=== PATIENT | female | born 1955 | race Caucasian/White ===

== ENCOUNTER 2019-07-10 15:45 | Emergency (ER) | payer OTHER, SELFPAY ==
[2019-07-10 16:00] VITALS: BP 138/86; PULSE 92; RESP 16; TEMP 36.8; O2SAT 98
--- NOTE | 2019-07-10 16:00 | ED.LOWEXIN ---
HPI - Extremity Injury (Lower) General Chief Complaint: Extremity Injury, Lower Stated Complaint: Left foot Pain Time Seen by Provider: 07/10/19 16:00 Source: patient and RN notes reviewed History of Present Illness HPI Narrative: Patient is a 64-year-old female presents the urgent care with complaints of left posterior ankle abrasion. Patient states that she slipped down a couple of wooden stairs scraping the back of her ankle/heel on the ground. Patient states that happened approximately 1 hour ago and has not taken anything for her pain. Patient ambulated into the facility without any difficulty. Denies any loss of consciousness or hitting her head. No other acute complaints. No acute distress noted. Patient read the plan of care. Related Data Home Medications Medication Instructions Recorded Confirmed cyclosporine [Restasis] 1 drp DAILY 07/10/19 07/10/19 mirtazapine 15 mg DAILY 07/10/19 07/10/19 oxybutynin chloride 10 mg PO DAILY 07/10/19 07/10/19 pantoprazole 40 mg PO DAILY 07/10/19 07/10/19 rosuvastatin 5 mg DAILY 07/10/19 07/10/19 Allergies Allergy/AdvReac Type Severity Reaction Status Date / Time codeine Allergy Unknown Verified 06/14/17 10:52 Review of Systems Review of Systems: Narrative: CONSTITUTIONAL: Denies fever, chills, or sweats. EYES: Denies visual changes, redness, or discharge. ENT: Denies rhinorrhea, congestion, sore throat, or otalgia. CARDIOVASCULAR: Denies chest pain, palpitations, or edema. RESPIRATORY: Denies cough or dyspnea. GASTROINTESTINAL: Denies abdominal pain, nausea, vomiting, or diarrhea. GENITOURINARY: Denies dysuria or hematuria. SKIN: Reports of a abrasion to the posterior ankle/heel MUSCULOSKELETAL: Denies back pain, joint pain, or myalgia. NEUROLOGIC: Denies headache, numbness, or weakness. [facility] Family History Family History (Updated 06/14/17 @ 10:56 by DOCTOR UNKNOWN) Mother Family history of malignant neoplasm Family history of thyroid disease Hypertension Family history of arthritis Father Patient's father is Social History Social History Smoking status: Never smoker Alcohol intake: never Gender identity (if verbalized by the patient): Female Comments At the time of my signature, I reviewed and agree with the nursing past medical, surgical, social, and family history. There is no relevant family history pertinent to the patient complaint. Exam Narrative: Exam Narrative: GENERAL: This is a well-nourished, well-developed patient, in no apparent distress. HEAD: normocephalic, atraumatic. EYES: PERRL. Sclera clear/white. Vision is grossly intact. EARS: External ears normal NOSE: External nose normal with no obvious nasal discharge THROAT: Mucous membranes moist NECK: Neck supple CARDIOVASCULAR: Regular rate and rhythm without murmurs, gallops, or rubs. RESPIRATORY: Clear to auscultation. Breath sounds equal bilaterally. No wheezes, rales, or rhonchi. SKIN: 0.5 cm diameter nonbleeding abrasion noted to the posterior heel/ankle. Warm, intact with no suspicious lesions or rash, good texture and turgor. NEURO: awake, alert, and oriented to person, place and time. There were no obvious focal neurologic abnormalities. EXTREMITIES: No obvious deformity or fracture to the left foot/malleolus. No erythema, edema, ecchymosis. Range of motion within normal limits. No obvious tendon rupture. Positive strong left pedal pulse with capillary refill less than 2 seconds. Course Vital Signs Vital signs: Vital Signs Temperature 98.2 F 07/10/19 16:00 Pulse Rate 92 07/10/19 16:00 Respiratory Rate 16 07/10/19 16:00 Blood Pressure 138/86 07/10/19 16:00 Pulse Oximetry 98 07/10/19 16:00 Temperature 98.2 F 07/10/19 16:00 Pulse Rate 92 07/10/19 16:00 Respiratory Rate 16 07/10/19 16:00 Blood Pressure 138/86 07/10/19 16:00 Pulse Oximetry 98 07/10/19 16:00 Reviewed MDM - Extremity Injury (Lower)
== END 2019-07-10 16:18 | disposition home or self-care (01) ==
PROVIDERS: Emergency Provider Nurse Practitioner Family; PCP Internal Medicine
DX: S90.512A Abrasion, left ankle, initial encounter (principal); W10.9XXA Fall (on) (from) unspecified stairs and steps, initial encounter; E78.00 Pure hypercholesterolemia, unspecified; K21.9 Gastro-esophageal reflux disease without esophagitis; M19.90 Unspecified osteoarthritis, unspecified site
CPT/HCPCS: 99212; G0463

== ENCOUNTER 2019-11-18 08:49 | Outpatient (CLI) | payer OTHER, SELFPAY ==
[2019-11-18 09:29] LABS: Blood Urea Nitrogen 20 mg/dL (7-17); Calcium 9.4 mg/dL (8.4-10.2); Carbon Dioxide 31 mmol/L (22-30); Chloride 105 mmol/L (98-107); Estimated Glomerular Filt Rate 55; Glucose 99 mg/dL (65-105); Potassium 4.5 mmol/L (3.4-5.0); Sodium 140 mmol/L (137-145)
== END 2019-11-18 08:50 | disposition home or self-care (01) ==
PROVIDERS: PCP Internal Medicine; Visit Provider Internal Medicine
DX: I10 Essential (primary) hypertension (principal)
CPT/HCPCS: 36415; 80048

== ENCOUNTER 2019-11-20 08:47 | Outpatient (CLI) | payer OTHER, SELFPAY ==
--- NOTE | ~2019-11-20 | DEXA_ITS ---
Bone Density Report Name: Greer Griffin Age: 64 Sex: Female Ethnicity: White Date of : 1955 Indication: osteopenia; Referring Provider: LEXUS HERNANDEZ Study: Bone densitometry was performed. Exam Date: November 20, 2019 Accession number: [id number] Bone Density: Region BMD T-score Z-score Classification AP Spine (L1-L4) 0.808 -2.2 -0.3 Osteopenia Femoral Neck (Left) 0.625 -2.0 -0.4 Osteopenia Total Hip (Left) 0.764 -1.5 -0.2 Osteopenia Total Hip Bilateral Avg 0.788 -1.3 0.0 Osteopenia Femoral Neck (Right) 0.657 -1.7 -0.1 Osteopenia Total Hip (Right) 0.810 -1.1 0.2 Osteopenia World Health Organization criteria for BMD impression classify patients as: Normal (T-score at or above -1.0), Osteopenia (T-score between -1.0 and -2.5), or Osteoporosis (T-score at or below -2.5). 10-year Fracture Risk(1): Major Osteoporotic Fracture 11% Hip Fracture 1.6% Reported Risk Factors: [place] (), Neck BMD=0.625, BMI=27.0 (1) FRAX(R) Version 3.08. Fracture probability calculated for an untreated patient. Fracture probability may be lower if the patient has received treatment. Previous Exams: Region Exam Age BMD T-score BMD Change BMD Change Date g/cm2 vs Baseline vs Previous AP Spine(L1-L4) 11/20/2019 64 0.808 -2.2 -0.020(-2.4%)# -0.023(-2.7%) 05/22/2017 61 0.831 -2.0 0.003(0.3%)# -0.014(-1.6%) 05/18/2015 59 0.845 -1.8 0.017(2.0%)# 0.001(0.1%)# 10/19/2012 57 0.844 -1.8 0.015(1.9%)# 0.042(5.2%)* 12/08/2011 56 0.802 -2.2 -0.027(-3.2%)# -0.021(-2.6%)# 08/12/2010 55 0.823 -2.0 -0.005(-0.6%) -0.005(-0.6%) 11/15/2007 52 0.828 -2.0 Total Hip(Left) 11/20/2019 64 0.764 -1.5 -0.041(-5.1%)# -0.057(-6.9%)* 05/22/2017 61 0.821 -1.0 0.016(2.0%)# 0.023(2.9%) 05/18/2015 59 0.798 -1.2 -0.007(-0.9%)# -0.027(-3.2%)# 10/19/2012 57 0.825 -1.0 0.019(2.4%)# 0.018(2.2%) 12/08/2011 56 0.807 -1.1 0.002(0.2%)# 0.015(1.8%)# 08/12/2010 55 0.792 -1.2 -0.013(-1.6%) -0.013(-1.6%) 11/15/2007 52 0.805 -1.1 Total Hip(Right) 11/20/2019 64 0.810 -1.1 -0.012(-1.5%)# -0.064(-7.3%)* 05/22/2017 61 0.875 -0.6 0.052(6.3%)# 0.089(11.4%)* 05/18/2015 59 0.785 -1.3 -0.037(-4.5%)# -0.015(-1.9%)# 10/19/2012 57 0.801 -1.2 -0.022(-2.7%)# 0.005(0.6%) 12/08/2011 56 0.796 -1.2 -0.027(-3.2%)# -0.048(-5.7%)# 08/12/2010 55 0.844 -0.8 0.022(2.6%) 0.022(2.6%) 11/15/2007 52 0.823 -1.0 *Denotes significance at 95% confidence level, LSC for AP Spin
== END 2019-11-20 08:48 | disposition home or self-care (01) ==
LOC: ANHIMG 08:48
PROVIDERS: PCP Internal Medicine; Visit Provider Internal Medicine
DX: M85.89 Other specified disorders of bone density and structure, multiple sites (principal)
CPT/HCPCS: 77080

== ENCOUNTER 2020-05-13 08:54 | Outpatient (CLI) | payer OTHER, SELFPAY ==
--- NOTE | ~2020-05-13 | MM_ITS ---
EXAMINATION: MM screening [facility] BI w deisy HISTORY: Screening mammogram TECHNIQUE: Craniocaudal and mediolateral oblique 3-D tomosynthesis images were obtained and synthetic 2-D images were generated. CAD analysis was submitted and interpreted. COMPARISON: 04/08/2019, 02/22/2018, 02/03 2017 bilateral digital screening mammogram examinations BREAST PARENCHYMAL COMPOSITION: There are scattered areas of fibroglandular density. FINDINGS: Possible new asymmetric approximately 7 mm opacity in the anterior aspect of the mid to upp er outer left breast (MLO Tomosynthesis image 23/71). Diagnostic left mammogram is recommended, with ultrasound if required. Otherwise there is no evidence of suspicious mass, calcification, or architectural distortion to sugg est malignancy in either breast. There has been no other suspicious interval change. IMPRESSION: 1. Possible new asymmetric 7 mm opacity in left breast (MLO Tomosynthesis image 23/71) 2. Diagnostic left mammogram is recommended, with ultrasound if required. BI-RADS Category 0: Incomplete: Needs additional imaging evaluation. Reviewed, dictated and finalized at location A. EMIC SUPPORT ASSISTANT
== END 2020-05-13 08:55 | disposition home or self-care (01) ==
LOC: ANHIMG 08:56
PROVIDERS: PCP Internal Medicine; Visit Provider Internal Medicine
DX: Z12.31 Encounter for screening mammogram for malignant neoplasm of breast (principal); R92.8 Other abnormal and inconclusive findings on diagnostic imaging of breast
CPT/HCPCS: 77063; 77067

== ENCOUNTER 2020-06-09 13:33 | Outpatient (CLI) | payer OTHER, SELFPAY ==
--- NOTE | ~2020-06-09 | MMUS_ITS ---
EXAMINATION: MM diagnostic mammo unilat LT, US breast LT limited HISTORY: Follow-up left breast asymmetry TECHNIQUE: Additional 3-D tomosynthesis images of the left breast were performed and synthetic 2-D im ages were generated. CAD analysis was submitted and interpreted. High resolution Limited left breast ultrasound was performed. COMPARISON: Comparison to multiple prior studies sequentially, with oldest reviewed study dated 12/03. BREAST PARENCHYMAL COMPOSITION: Breast composed of scattered areas of fibroglandular density FINDINGS: MAMMOGRAPHIC FINDINGS: There are no suspicious masses, calcifications or architectural distortion in the left breast to sugg est malignancy. Focal asymmetries are less apparent with spot compression views, most likely superimp osed fibroglandular tissue. ULTRASOUND: Limited left breast ultrasound: There is hyperechoic soft tissue at the 3:00 position, likely represe nting interface artifact rather than a discrete mass. This is not definitely seen on the pedicular or ientation. In the subareolar location there is a hypoechoic area, likely confluence of ducts rather t perry a mass. IMPRESSION: 1. Probable benign findings of the left breast. 2. Recommend 6 month follow-up diagnostic left mammogram and ultrasound recommended. BI-RADS category 3, probably benign findings. Reviewed, dictated and finalized at location A. ERER IMPRESSION: 1. Probable benign findings of the left breast. 2. Recommend 6 month follow-up diagnostic left mammogram and ultrasound recomme nded. BI-RADS category 3, probably benign findings.
== END 2020-06-09 13:34 | disposition home or self-care (01) ==
PROVIDERS: PCP Internal Medicine; Visit Provider Internal Medicine
DX: R92.8 Other abnormal and inconclusive findings on diagnostic imaging of breast (principal)
CPT/HCPCS: 76642; 77065

== ENCOUNTER → 2020-10-07 10:14 | Outpatient (CLI) | payer OTHER, SELFPAY ==
--- NOTE | ~2020-10-07 | XR_ITS ---
EXAMINATION: XR wrist LT min 3V DATE: 10/07/2020 10:32 INDICATION: Pain at left first carpometacarpal joint. TECHNIQUE: 4 views of left wrist were obtained. COMPARISON: None. FINDINGS: Bone alignment is normal. No fracture. There is mild osteoarthritis of first carpometacarpa l joint. IMPRESSION: 1. Mild osteoarthritis of first carpometacarpal joint. Reviewed, dictated and finalized at location A.
== END ==
PROVIDERS: PCP Internal Medicine; Visit Provider Plastic Surgery
DX: M19.042 Primary osteoarthritis, left hand (principal)
CPT/HCPCS: 73110

== ENCOUNTER 2020-12-10 10:52 | Outpatient (CLI) | payer OTHER, SELFPAY ==
--- NOTE | ~2020-12-10 | MMUS_ITS ---
EXAMINATION: MM diagnostic [facility] LT w deisy, US breast LT limited HISTORY: Follow-up left breast asymmetry TECHNIQUE: Additional 3-D tomosynthesis images of the left breast were performed and synthetic 2-D im ages were generated. CAD analysis was submitted and interpreted. High resolution left breast ultrasou nd was performed. COMPARISON: Comparison to multiple prior studies sequentially, with oldest reviewed study dated 02/04/2016. BREAST PARENCHYMAL COMPOSITION: Breast composed of scattered areas of fibroglandular density. FINDINGS: MAMMOGRAPHIC FINDINGS: There are no suspicious masses, calcifications or architectural distortion in the left breast to sugg est malignancy. ULTRASOUND: Limited left breast ultrasound: Normal heterogeneous echotexture without focal solid or cystic mass. IMPRESSION: 1. No evidence for malignancy in the left breast. 2. Routine yearly screening mammogram and regular clinical breast examination are recommended. BI-RADS Category 1: Negative Reviewed, dictated and finalized at location A. IMPRESSION: 1. No evidence for malignancy in the left breast. 2. Routine yearly screening mammogram and regular clinical breast examination a re recommended. BI-RADS Category 1: Negative
== END 2020-12-10 10:53 | disposition home or self-care (01) ==
PROVIDERS: PCP Internal Medicine; Visit Provider Internal Medicine
DX: R92.8 Other abnormal and inconclusive findings on diagnostic imaging of breast (principal)
CPT/HCPCS: 76642; 77061; 77065; G0279

== ENCOUNTER 2021-01-06 10:28 | Emergency (ER) | payer OTHER, SELFPAY ==
--- NOTE | ~2021-01-06 | XR_ITS ---
EXAMINATION: XR hand RT min 3V DATE: 01/06/2021 11:37 INDICATION: Right hand pain post fall TECHNIQUE: Posteroanterior, oblique and lateral views of the right hand were obtained. COMPARISON: Right hand and wrist radiographs dated 05/24/2014 FINDINGS: 2 mm ulnar minus variance. Bone alignment is otherwise normal. No fracture. Polyarticular osteoarthri tis with interval progression of now moderate nonuniform joint space narrowing at the lunocapitate ar ticulation of the midcarpal joint. Mild osteoarthritis at the first carpometacarpal and several predo minantly distal interphalangeal joints. Soft tissues are unremarkable. IMPRESSION: 1. No acute osseous abnormality. 2. Polyarticular osteoarthritis which is most severe and with interval progression at the lunocapitat e articulation of the midcarpal joint where it is of moderate severity. Reviewed, dictated and finalized at location A. IMPRESSION: 1. No acute osseous abnormality. 2. Polyarticular osteoarthritis which is most severe and with interval progress ion at the lunocapitate articulation of the midcarpal joint where it is of mode rate severity.
--- NOTE | ~2021-01-06 | XR_ITS ---
XR lumbar spine 2-3V 01/06/2021 11:37 Indication: Low back pain Procedure: 3 views lumbar spine Comparison: 03/19/2012 Findings: There is levoscoliosis. The appearance to T11 which is chronic. There is mild disc narrowin g at L3-4, L4-5 and L5-S1. No acute fracture or traumatic malalignment. No evidence for spondylolisth esis. Impression: 1: Mild lumbar spondylosis with levoscoliosis. 2: Chronic mild wedge compression deformity of T11 unchanged. Reviewed, dictated and finalized at location A. Impression: 1: Mild lumbar spondylosis with levoscoliosis. 2: Chronic mild wedge compression deformity of T11 unchanged.
[2021-01-06 10:36] VITALS: BP 111/64; PULSE 68; RESP 16; TEMP 36.9; O2SAT 100
--- NOTE | 2021-01-06 11:18 | ED.FALL ---
HPI - Fall General Chief Complaint: Fall Stated Complaint: right hand/tailbone pain Time Seen by Provider: 01/06/21 11:00 Source: patient, RN notes reviewed and old records reviewed Mode of arrival: ambulatory Limitations: no limitations History of Present Illness HPI Narrative: 65 year old female presents to express care with complaints of falling at home yesterday evening when she slipped on wet tile floor landing on her back and hand was down by her. She is not sure if she bent her hand back but has discomfort to the right hand in webbing space between 1st and 2nd finger and along metacarpal area with bruising noted. She also reports pain to the tailbone area when she changes positions and when sitting. Patient does admit to history of arthritis and also history of osteopenia. Patient states that she has taken some OTC Tylenol an has applied ice to her hand with no resolution in symptoms. MD complaint: fall Onset (ago): day(s) (1) Fall from: standing Place fall occurred: home Loss of consciousness: none Symptoms prior to fall: none Context: tripped/slipped Location of injury: back (tailbone area) Severity: moderate Quality: aching Associated symptoms (after fall): other (pain to tailbone region, pain to right hand) Related Data Home Medications Medication Instructions Recorded Confirmed cyclosporine [Restasis] 1 drp EACH EYE DAILY 07/10/19 01/06/21 multivitamin with min 1 tablet PO DAILY 08/13/19 01/06/21 no.36-iron,carbonyl-FA 16 mg iron-0.38 mg tablet Allergies Allergy/AdvReac Type Severity Reaction Status Date / Time codeine AdvReac Mild Vomiting Verified 01/06/21 10:42 Review of Systems Review of Systems: Narrative: CONSTITUTIONAL: Denies fever, chills, or sweats. EYES: Denies visual changes, redness, or discharge. ENT: Denies rhinorrhea, congestion, sore throat, or otalgia. CARDIOVASCULAR: Denies chest pain, palpitations, or edema. RESPIRATORY: Denies cough or dyspnea. GASTROINTESTINAL: Denies abdominal pain, nausea, vomiting, or diarrhea. GENITOURINARY: Denies dysuria or hematuria. SKIN: Denies rash or itching. MUSCULOSKELETAL: positive for lower back pain in tailbone area, positive for right hand pain between 1st and 2nd finger and in MCP area of right thumb, or myalgia. NEUROLOGIC: Denies headache, numbness, or weakness. PSYCHIATRIC: Denies anxiety or depression. 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 S/p bilateral carpal tunnel release Family History Family History (Updated 06/14/17 @ 10:56 by DOCTOR UNKNOWN) Mother Family history of malignant neoplasm Family history of thyroid disease Hypertension Family history of arthritis Father Patient's father is Social History Social History (Updated 01/10/21 @ 09:42 by Claire Rankin NP) Smoking status: Never smoker Alcohol intake: never Substance use: never Living arrangements: with family Gender identity (if verbalized by the patient): Female Comments At time of signature agree with nursing documentation of past medical, surgical, social and family history, there is no relevant family history pertinent to presenting complaint. Exam Narrative: Exam Narrative: GENERAL: Well-appearing, well-nourished, and in no acute distress. HEAD: Normocephalic, atraumatic. EYES: PERRLA and EOMI. ENT: Nares clear, no rhinorrhea or epistaxis. Mucous membranes moist. NECK: Supple. no lymphadenopat
== END 2021-01-06 12:37 | disposition home or self-care (01) ==
PROVIDERS: Emergency Provider Registered Nurse; PCP Internal Medicine
DX: M53.3 Sacrococcygeal disorders, not elsewhere classified (principal); S60.221A Contusion of right hand, initial encounter; W01.0XXA Fall on same level from slipping, tripping and stumbling without subsequent striking against object, initial encounter; I10 Essential (primary) hypertension; K21.00 Gastro-esophageal reflux disease with esophagitis, without bleeding; M81.0 Age-related osteoporosis without current pathological fracture; L94.9 Localized connective tissue disorder, unspecified
CPT/HCPCS: 72100; 73130; 99214; G0463

== ENCOUNTER 2021-03-01 09:33 | Emergency (ER) | payer OTHER, SELFPAY ==
[2021-03-01 09:43] VITALS: BP 149/73; PULSE 67; RESP 18; TEMP 36.6; O2SAT 100
--- NOTE | 2021-03-01 10:23 | ED.WOUNDLAC ---
HPI - Wound/Laceration General Chief Complaint: Wound/Laceration Stated Complaint: Laceration on face Time Seen by Provider: 03/01/21 10:10 Source: patient, RN notes reviewed and old records reviewed Mode of arrival: ambulatory Limitations: no limitations History of Present Illness HPI narrative: 65 year old female with complaints of left eyelid injury. 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 Patient denies any visual changes, has no injury noted to underside of eyelid upon examination. Patient's tetanus is not up to date. Related Data Home Medications Medication Instructions Recorded Confirmed cyclosporine [Restasis] 1 drp EACH EYE DAILY 07/10/19 03/01/21 multivitamin with min 1 tablet PO DAILY 08/13/19 03/01/21 no.36-iron,carbonyl-FA 16 mg iron-0.38 mg tablet Allergies Allergy/AdvReac Type Severity Reaction Status Date / Time codeine AdvReac Mild Vomiting Verified 03/01/21 10:03 Review of Systems Review of Systems: CONSTITUTIONAL: Denies fever, chills, or sweats. EYES: Denies visual changes, redness, or discharge.laceration to left inner upper eyelid ENT: Denies rhinorrhea, congestion, sore throat, or otalgia. CARDIOVASCULAR: Denies chest pain, palpitations, or edema. RESPIRATORY: Denies cough or dyspnea. GASTROINTESTINAL: Denies abdominal pain, nausea, vomiting, or diarrhea. GENITOURINARY: Denies dysuria or hematuria. SKIN: Denies rash or itching. MUSCULOSKELETAL: Denies back pain, joint pain, or myalgia. NEUROLOGIC: Denies headache, numbness, or weakness. PSYCHIATRIC: Denies anxiety or depression. 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 There is no relevant family history pertinent to the presenting complaint Exam Narrative: GENERAL: Well-appearing, well-nourished, and in no acute distress. HEAD: Normocephalic, atraumatic. EYES: PERRLA and EOMI. 0.5cm laceration to inner left eyelid, no acute bleeding present, no changes in vision or any acute pain to eye. no injury to underside of eyelid on examination. ENT: Nares clear, no rhinorrhea or epistaxis. Mucous membranes moist.TM's normal throat pink with no lesions or exudates, no tonsil enlargement NECK: Supple.no lymphadenopathy CHEST: Clear to auscultation. No respiratory distress. HEART: Regular rate and rhythm. No murmur heard. Normal peripheral pulses. ABDOMEN: Soft, nontender, nondistended, normal active bowel sounds. EXTREMITIES: Normal range of motion. No edema. SKIN: Warm, dry, no rash.small abrasion noted to mid forehead with no drainage or gaping. NEURO: No focal deficits. Alert and oriented x3. Course Vital Signs Vital signs: Vital S
[2021-03-01] MEDS: TETANUS,DIPHTHERIA,AC PERTUSSIS ADULT (0.5 ML) BOOSTRIX IM (10:40)
== END 2021-03-01 11:01 | disposition home or self-care (01) ==
PROVIDERS: Emergency Provider Registered Nurse; PCP Internal Medicine
DX: S01.112A Laceration without foreign body of left eyelid and periocular area, initial encounter (principal); F41.9 Anxiety disorder, unspecified; I10 Essential (primary) hypertension; Z23 Encounter for immunization; W26.8XXA Contact with other sharp object(s), not elsewhere classified, initial encounter; Y93.H2 Activity, gardening and landscaping
CPT/HCPCS: 12011; 90471; 90715; 99213; G0463

== ENCOUNTER 2021-08-25 08:59 | Outpatient (CLI) | payer OTHER, SELFPAY ==
--- NOTE | 2021-08-25 | ECG_ITS ---
Measurements Intervals [place] Rate: 62 P: 6 PA: 151 QRS: -12 QRSD: 86 T: 13 QT: 394 QTc: 402 Interpretive Statements SINUS RHYTHM LOW QRS VOLTAGE IN PRECORDIAL LEADS [QRS DEFLECTION < 1.0 mV IN CHEST LEADS] NO PREVIOUS ECG AVAILABLE FOR COMPARISON Electronically Signed On 08-25-2021 13:03:42 CDT by Ramona Bueno M.D.
== END 2021-08-25 09:00 | disposition home or self-care (01) ==
LOC: ANHCARD 09:04
PROVIDERS: PCP Internal Medicine; Visit Provider Podiatrist Foot & Ankle Surgery
DX: R03.0 Elevated blood-pressure reading, without diagnosis of hypertension (principal)
CPT/HCPCS: 93005

== ENCOUNTER 2021-10-27 18:42 | Emergency (ER) | payer OTHER, SELFPAY ==
[2021-10-27 18:52] VITALS: BP 114/64; PULSE 74; RESP 18; TEMP 36.7; O2SAT 100
--- NOTE | 2021-10-27 19:12 | ED.EYEPROB ---
HPI - Eye Problem General Chief complaint: Eye Problems Stated complaint: left eye redness/swelling Time Seen by Provider: 10/27/21 19:12 Source: patient Mode of arrival: ambulatory Limitations: no limitations History of Present Illness HPI Narrative: 58-year-old female presented for complaint of left eye swelling, onset today. Denies injury or rubbing the eye today. She denies any pain, itching or foreign body sensation. Denies vision changes, rash, headache, sinus congestion. She states she has had clear drainage to the eye today. Endorses a history of dry eye for which she takes Restasis. Also endorses a history of corneal ulcers at the diagnosis of dry eye in her 30s. Endorses the left side of her face is numb due to history of a CVA. Denies sick contacts. Related Data Home Medications Medication Instructions Recorded Confirmed multivitamin with min 1 tablet PO DAILY 08/13/19 10/27/21 no.36-iron,carbonyl-FA 16 mg iron-0.38 mg tablet cyclosporine [Restasis MultiDose] 1 drp EACH EYE Q12H 10/27/21 10/27/21 Allergies Allergy/AdvReac Type Severity Reaction Status Date / Time codeine AdvReac Mild Vomiting Verified 10/27/21 18:56 Review of Systems Review of Systems: CONSTITUTIONAL: Denies body aches, fever, chills EYES:Endorses swelling, redness to right eye; Denies visual changes ENT: Denies rhinorrhea, congestion, sore throat, or otalgia. CARDIOVASCULAR: Denies chest pain, palpitations RESPIRATORY: Denies cough or dyspnea. GASTROINTESTINAL: Denies abdominal pain, nausea, vomiting, or diarrhea. SKIN: Denies rash, itching, or wounds. MUSCULOSKELETAL: Denies back pain, joint pain, or myalgia. NEUROLOGIC: Denies headache, numbness, tingling, or weakness. PSYCH: Denies depression or anxiety. All systems reviewed & are unremarkable except as noted in HPI and below PMFSH Past Medical History Medical History Age-related cataract of both eyes Anxiety Compression fracture of body of thoracic vertebra Connective tissue disorder lupus in remission Essential hypertension GERD with esophagitis Osteopenia Pure hypercholesterolemia Seasonal allergic rhinitis Surgical History Surgical History Hx of craniotomy bone cyst removed base of brain S/p bilateral carpal tunnel release Family History Family History Mother Family history of malignant neoplasm Family history of thyroid disease Hypertension Family history of arthritis Father Patient's father is Social History Social History Smoking status: Never smoker Alcohol intake: never Substance use: never Substance use type: does not use Gender identity (if verbalized by the patient): Female Comments At time of signature, I have reviewed and agree with nursing past medical, surgical, social and family history unless otherwise noted. Please see nursing chart for further information. There is no relevant family history pertinent to the presenting complaint Exam Narrative: GENERAL: Well-appearing, well-nourished, and in no acute distress. HEAD: Normocephalic, atraumatic. EYES: left upper eye lid swelling/redness with clear drainage; no conjunctival injection, EOMI. Lid eversion showed no FB ENT: Mucous membranes pink and moist. No rhinorrhea. TMs normal bilaterally. Throat normal. Uvula midline. NECK: Normal AROM. Supple. No lymphadenopathy. CHEST: No respiratory distress. Clear to auscultation. HEART: Regular rate and rhythm. No murmur appreciated. Normal peripheral pulses. ABDOMEN: Soft, nontender, nondistended MUSCULOSKELETAL: No bony tenderness. EXTREMITIES: Normal range of motion. SKIN: Warm, dry, no rash. Normal skin turgor. NEURO: No focal deficits. Alert and oriented x3. Steady ga
== END 2021-10-27 19:53 | disposition home or self-care (01) ==
PROVIDERS: Emergency Provider Nurse Practitioner Family; PCP Internal Medicine
DX: H05.222 Edema of left orbit (principal); I10 Essential (primary) hypertension; K21.00 Gastro-esophageal reflux disease with esophagitis, without bleeding; M85.80 Other specified disorders of bone density and structure, unspecified site; E78.00 Pure hypercholesterolemia, unspecified; H25.9 Unspecified age-related cataract; I69.398 Other sequelae of cerebral infarction; R20.0 Anesthesia of skin; H04.129 Dry eye syndrome of unspecified lacrimal gland
CPT/HCPCS: 99213; A9270; G0463

== ENCOUNTER 2022-01-29 08:26 | Outpatient (CLI) | payer OTHER, SELFPAY ==
[2022-01-29 09:24] LABS: Alanine Aminotransferase 21 U/L (6-35); Alkaline Phosphatase 80 U/L (38-126); Anion Gap 5 mmol/L (8-16); Aspartate Amino Transferase 23 U/L (14-36); Bilirubin,Total 0.4 mg/dL (0.2-1.3); Blood Urea Nitrogen 24 mg/dL (7-17); Calcium 9.2 mg/dL (8.4-10.2); Carbon Dioxide 30 mmol/L (22-30); Chloride 102 mmol/L (98-107); Cholesterol 198 mg/dL (0-200); Estimated Glomerular Filt Rate > 60; Glucose 93 mg/dL (65-110); HDL Direct 49 mg/dL; Potassium 4.3 mmol/L (3.4-5.0); Sodium 137 mmol/L (137-145); Triglycerides 155 mg/dL (<150)
[2022-01-29 09:35] LABS: LDL Cholesterol Direct 85 mg/dL
[2022-01-29 09:39] LABS: Vitamin D 25 Hydroxy 39.7 ng/mL
== END 2022-01-29 08:27 | disposition home or self-care (01) ==
LOC: ANHLAB 08:29
PROVIDERS: PCP Internal Medicine; Visit Provider Internal Medicine
DX: E78.5 Hyperlipidemia, unspecified (principal); E55.9 Vitamin D deficiency, unspecified; I10 Essential (primary) hypertension; Z79.899 Other long term (current) drug therapy
CPT/HCPCS: 36415; 80053; 80061; 82306

== ENCOUNTER 2022-03-12 11:47 | Emergency (ER) | payer OTHER, SELFPAY ==
--- NOTE | ~2022-03-12 | XR_ITS ---
EXAMINATION: XR chest 2V DATE: 03/12/2022 12:38 INDICATION: Cough. TECHNIQUE: Frontal and lateral views of the chest were obtained. COMPARISON: Chest 2 views 04/23/2014 FINDINGS: The chest demonstrates clear lungs without pneumonia, pleural effusion, or pneumothorax. Th e heart size is normal. IMPRESSION: 1. No acute cardiopulmonary disease. Reviewed, dictated and finalized at location A.
[2022-03-12 12:13] VITALS: BP 134/89; PULSE 72; RESP 16; TEMP 35.8; O2SAT 99
--- NOTE | 2022-03-12 12:27 | ED.GENADULT ---
HPI - General Adult General Chief complaint: Upper Respiratory Infection Stated complaint: cough,cold Source: patient Mode of arrival: ambulatory Limitations: no limitations History of Present Illness HPI narrative: Patient presents for evaluation of sick symptoms for the last 3 days. She states she initially had a sore throat but that has improved. She has developed some fatigue, sinus congestion and drainage, and nonproductive cough. She denies any fever, chills, nausea, vomiting, diarrhea. She is not taking any medications to assist with her symptoms. One of her friends has similar symptoms. She has been diagnosed with COVID twice. She does not smoke. No additional complaints or concerns. Related Data Home Medications Medication Instructions Recorded Confirmed multivitamin with min 1 tablet PO DAILY 08/13/19 03/12/22 no.36-iron,carbonyl-FA 16 mg iron-0.38 mg tablet (Geritol Complete) cyclosporine 0.05 % eye drops 1 drp EACH EYE Q12H 10/27/21 03/12/22 (Restasis MultiDose) Allergies Allergy/AdvReac Type Severity Reaction Status Date / Time codeine AdvReac Mild Vomiting Verified 03/12/22 12:00 Review of Systems Review of Systems: CONSTITUTIONAL: Reports fatigue. Denies fever, chills, or sweats. EYES: Denies visual changes, redness, or discharge. ENT: Reports recent sore throat, now resolved. Reports sinus congestion and green nasal drainage CARDIOVASCULAR: Denies chest pain, palpitations, or edema. RESPIRATORY: Reports cough. Denies shortness of breath. GASTROINTESTINAL: Denies abdominal pain, nausea, vomiting, or diarrhea. GENITOURINARY: Denies dysuria or hematuria. SKIN: Denies rash or itching. MUSCULOSKELETAL: Reports generalized body aches. NEUROLOGIC: Denies headache, numbness, dizziness, or weakness. PSYCHIATRIC: Denies anxiety or depression. [facility] Past Medical History Medical History (Updated 03/12/22 @ 12:54 by BILL Burgos, DIGNA) Age-related cataract of both eyes Anxiety Compression fracture of body of thoracic vertebra Connective tissue disorder lupus in remission Essential hypertension GERD with esophagitis Osteopenia Pure hypercholesterolemia Seasonal allergic rhinitis Surgical History Surgical History History of foot surgery Hx of craniotomy bone cyst removed base of brain S/p bilateral carpal tunnel release Family History Family History Mother Family history of malignant neoplasm Family history of thyroid disease Hypertension Family history of arthritis Father Patient's father is Social History Social History Smoking status: Never smoker Alcohol intake: never Substance use: never Substance use type: does not use Living arrangements: alone Gender identity (if verbalized by the patient): Female Spiritual care concerns: No Exam Narrative: GENERAL: Well-appearing, well-nourished, and in no acute distress. HEAD: Normocephalic, atraumatic. EYES: PERRLA and EOMI. ENT: Nares clear, no rhinorrhea or epistaxis. Mucous membranes moist. There is posterior pharyngeal erythema without exudate. Uvula is midline. Bilateral TMs pearly langford nonbulging NECK: Supple. No adenopathy or masses. No carotid bruits or JVD CHEST: Clear to auscultation. No respiratory distress. No wheezes rales or rhonchi HEART: Regular rate and rhythm. No murmur heard. Normal peripheral pulses. ABDOMEN: Soft, nontender, nondistended, normal active bowel sounds. EXTREMITIES: Normal range of motion. No edema. SKIN: Warm, dry, no rash. NEURO: No focal deficits. Alert and oriented x3. PSYCH: Normal mood and affect. Course Course Emergency Course: This is a 66-year-old female who presented for evaluation of sick symptoms. Strep, COVID, influenza, chest x-ray
== END 2022-03-12 13:03 | disposition home or self-care (01) ==
PROVIDERS: Emergency Provider Nurse Practitioner; PCP Internal Medicine
DX: J06.9 Acute upper respiratory infection, unspecified (principal); Z20.822 Contact with and (suspected) exposure to COVID-19; I10 Essential (primary) hypertension; K21.00 Gastro-esophageal reflux disease with esophagitis, without bleeding; M85.80 Other specified disorders of bone density and structure, unspecified site; E78.00 Pure hypercholesterolemia, unspecified
CPT/HCPCS: 71046; 87081; 87426; 87804; 87880; 99213; C9803; G0463

== ENCOUNTER 2022-04-09 09:20 | Outpatient (CLI) | payer OTHER, SELFPAY ==
--- NOTE | ~2022-04-09 | MM_ITS ---
EXAMINATION: MM screening alexander BI w deisy HISTORY: Screening TECHNIQUE: Craniocaudal and mediolateral oblique 3-D tomosynthesis images were obtained and synthetic 2-D images were generated. CAD analysis was submitted and interpreted. COMPARISON: Comparison to multiple prior studies sequentially, with oldest reviewed study dated 02/06. BREAST PARENCHYMAL COMPOSITION: There are scattered areas of fibroglandular density. FINDINGS: There is no evidence of suspicious mass, calcification, or architectural distortion to sugg est malignancy in either breast. There has been no suspicious interval change. IMPRESSION: 1. No mammographic evidence of malignancy. 2. Recommend routine screening mammography in one year. BI-RADS Category 1: Negative Reviewed, dictated and finalized at location A.
== END 2022-04-09 09:21 | disposition home or self-care (01) ==
PROVIDERS: PCP Internal Medicine; Visit Provider Internal Medicine
DX: Z12.31 Encounter for screening mammogram for malignant neoplasm of breast (principal)
CPT/HCPCS: 77063; 77067

== ENCOUNTER 2022-09-16 19:48 | Emergency (ER) | payer OTHER, SELFPAY ==
--- NOTE | 2022-09-16 19:49 | ED.EYEPROB ---
HPI - Eye Problem General Chief complaint: Eye Problems Stated complaint: Right Eye Irritation Time Seen by Provider: 09/16/22 19:49 Source: patient Mode of arrival: ambulatory Limitations: no limitations History of Present Illness HPI Narrative: Ms. Oreilly is a 67-year-old female patient presenting to the clinic today with complaints of right eye pain/drainage. States she was caring up at plant on Monday and it poked her in the eye. She is having yellow mucopurulent discharge coming from the right eye today. She is having some blurry vision. Visual acuity was performed Related Data Home Medications Medication Instructions Recorded Confirmed multivitamin with min 1 tablet PO DAILY 08/13/19 08/10/22 no.36-iron,carbonyl-FA 16 mg iron-0.38 mg tablet (Geritol Complete) cyclosporine 0.05 % eye drops 1 drp EACH EYE Q12H 10/27/21 08/10/22 (Restasis MultiDose) Allergies Allergy/AdvReac Type Severity Reaction Status Date / Time codeine AdvReac Mild Vomiting Verified 09/16/22 19:50 Review of Systems Review of Systems: Pertinent positives per HPI. Patient denies any fever, chills, rash, headache, dizziness, cough, runny nose, sore throat, shortness of breath, chest pain, palpitations, nausea, vomiting, diarrhea, constipation, abdominal pain, or any urinary issues. 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, old, alterations of sensations De Quervain's tenosynovitis Essential hypertension GERD with esophagitis History of COVID-19 Narrow angle glaucoma suspect of both eyes Osteoarthritis of hand, right Osteopenia Pure hypercholesterolemia Seasonal allergic rhinitis Urge incontinence Surgical History Surgical History History of foot surgery Hx of craniotomy bone cyst removed base of brain S/p bilateral carpal tunnel release Family History Family History Mother Family history of malignant neoplasm Family history of thyroid disease Hypertension Family history of arthritis Father Patient's father is Social History Social History Smoking status: Never smoker Alcohol intake: never Substance use: never Substance use type: does not use Lack of Transportation: No Lack of Food: Never True Current Housing: I Have Housing Concerned About Future Housing: No Difficulty Paying Gas/Electric Bills: No Difficulty Paying for Meds: No Currently Unemployed: No Education: High School Diploma/GED Difficulty w/ Childcare or Family Care: No Living arrangements: alone Gender identity (if verbalized by the patient): Female Spiritual care concerns: No Comments At the time of my signature, I reviewed and agree with the nursing past medical, surgical, social, and family history. There is no relevant family history pertinent to the patient complaint. Exam Narrative: General: Well-developed, well nourished, in no apparent distress Head: Normocephalic, atraumatic Eyes: Pupils equally round and reactive to light bilaterally, EOM intact, right sclera and conjunctive injected, yellow make your per discharge, right lids swelling, no foreign body or corneal abrasion noted with Wood's lamp examination Ears: TMs intact and clear, ear canals clear, no drainage, grossly hearing normal. Nose: Nares patent, no discharge, no inflammation, no sinus tenderness. Mouth: Oropharynx without lesions or masses, good dentition, MMM. Neck: Supple, trachea midline, no enlargement of anterior or posterior cervical nodes, no thyroid masses or goiter palpable. Cardio: Regular rate and rhythm, s1 and s2
[2022-09-16 19:58] VITALS: BP 141/68; PULSE 86; RESP 18; TEMP 36.7; O2SAT 99
--- NOTE | 2022-09-16 20:09 | PC.NURSE ---
1957 eye kit set up at bedside.
== END 2022-09-16 20:22 | disposition home or self-care (01) ==
PROVIDERS: Emergency Provider Nurse Practitioner Family; PCP Internal Medicine
DX: H44.001 Unspecified purulent endophthalmitis, right eye (principal)
CPT/HCPCS: 99213; A9270; G0463

== ENCOUNTER 2023-05-01 09:40 | Outpatient (CLI) | payer OTHER, SELFPAY ==
--- NOTE | ~2023-05-01 | DEXA_ITS ---
Bone Density Report Name: CONI PACHECO Age: 67 Sex: Female Ethnicity: White Date of : 1955 Indication: postmenopausal; screening for osteoporosis; Referring Provider: MARKEL PORRAS Study: Bone densitometry was performed. Exam Date: May 01, 2023 Accession number: [id number] Bone Density: Region BMD T-score Z-score Classification AP Spine(L1-L4) 0.836 -1.9 0.2 Osteopenia Femoral Neck (Left) 0.618 -2.1 -0.3 Osteopenia Total Hip (Left) 0.724 -1.8 -0.3 Osteopenia Femoral Neck (Right) 0.647 -1.8 0.0 Osteopenia Total Hip (Right) 0.766 -1.4 0.0 Osteopenia Total Hip Mean 0.745 -1.6 -0.2 Osteopenia World Health Organization criteria for BMD impression classify patients as: Normal (T-score at or above -1.0), Osteopenia (T-score between -1.0 and -2.5), or Osteoporosis (T-score at or below -2.5). 10-year Fracture Risk: FRAX not reported because: Treated for osteoporosis Clinical Information Provided by Patient: Is being treated for osteoporosis Has used the following medications: Vitamin D, Calcium Patient maximum height was 61 Menopause Age: 48 Drinks caffeinated beverages Onset of menses at age 12 Number of children 0 Impression: The patient has low bone mass, based on the Left Femoral Neck T-score. Discussion: It is important to ask patients whether they are taking their medications and to encourage continued and appropriate compliance with their osteoporosis therapies to reduce fracture risk. It is also important to review their risk factors and encourage appropriate calcium and vitamin D intakes, exercise, fall prevention and other lifestyle measures. Follow-Up: Consider a repeat BMD and Vertebral Fracture Assessment (VFA) exam in 2 years or sooner if medically necessary, to reassess this patient's status. Reported by: SHAWNA on 05/01/2023 10:01:00 AM. Reviewed, dictated and finalized at location AJayne VALENTE
== END 2023-05-01 09:41 | disposition home or self-care (01) ==
LOC: ANHIMG 09:41
PROVIDERS: PCP Nurse Practitioner Family; Visit Provider Nurse Practitioner Family
DX: Z13.820 Encounter for screening for osteoporosis (principal); M85.88 Other specified disorders of bone density and structure, other site; M85.852 Other specified disorders of bone density and structure, left thigh; M85.851 Other specified disorders of bone density and structure, right thigh
CPT/HCPCS: 77080

== ENCOUNTER 2023-05-10 10:48 | Emergency (ER) | payer OTHER, SELFPAY ==
--- NOTE | ~2023-05-10 | XR_ITS ---
XR hand LT min 3V 05/10/2023 11:12 INDICATION: Left hand pain PROCEDURE: 4 views left hand COMPARISON: No prior studies for comparison. FINDINGS: Fracture, dislocation or subluxation is not identified. Mild polyarticular osteoarthritis. The soft tissues appear within normal limits. No foreign bodies are identified. IMPRESSION: 1: NO ACUTE BONE OR JOINT ABNORMALITY IDENTIFIED. Reviewed, dictated and finalized at location B. LINE PLANT OPERATOR
[2023-05-10 10:58] VITALS: BP 140/64; PULSE 67; RESP 12; TEMP 36.7; O2SAT 100
--- NOTE | 2023-05-10 11:00 | ED.UPPEXIN ---
HPI - Extremity Injury (Upper) General Chief Complaint: Extremity Injury, Upper Stated Complaint: Left Hand Pain Source: patient Mode of arrival: ambulatory Limitations: no limitations History of Present Illness HPI narrative: 67-year-old female presented for complaint of left thumb pain after injury yesterday. She states she reached out to grab the middle section of her [place] tree when it was tipping over, and when she grabbed it echoes pain to the left thumb. She denies deformity, numbness, tingling, weakness of the hand. She endorses decreased range of motion to the thumb due to the pain. She took Tylenol yesterday. Endorses a history of osteoarthritis. Related Data Home Medications Medication Instructions Recorded Confirmed multivitamin with min 1 tablet PO DAILY 08/13/19 05/10/23 no.36-iron,carbonyl-FA 16 mg iron-0.38 mg tablet (Geritol Complete) cyclosporine 0.05 % eye drops 1 drp EACH EYE Q12H 10/27/21 05/10/23 (Restasis MultiDose) Allergies Allergy/AdvReac Type Severity Reaction Status Date / Time codeine AdvReac Mild Vomiting Verified 05/10/23 10:54 Review of Systems Review of Systems: CONSTITUTIONAL: Denies body aches, fever, chills EYES: Denies visual changes ENT: Denies rhinorrhea, congestion CARDIOVASCULAR: Denies chest pain, palpitations, or edema. RESPIRATORY: Denies cough or dyspnea. GASTROINTESTINAL: Denies abdominal pain, nausea, vomiting, or diarrhea. SKIN: Denies rash, itching, or wounds. MUSCULOSKELETAL: Reports left thumb pain Denies back pain, or myalgia. NEUROLOGIC: Denies headache, numbness, tingling, or weakness. 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, old, alterations of sensations De Quervain's tenosynovitis Essential hypertension GERD with esophagitis History of COVID-19 Narrow angle glaucoma suspect of both eyes Osteoarthritis of hand, right Osteopenia Pure hypercholesterolemia Seasonal allergic rhinitis Urge incontinence Surgical History Surgical History History of foot surgery Hx of craniotomy bone cyst removed base of brain S/p bilateral carpal tunnel release Family History Family History Mother Family history of malignant neoplasm Family history of thyroid disease Hypertension Family history of arthritis Father Patient's father is Social History Social History Smoking status: Never smoker Alcohol intake: never Substance use: never Substance use type: does not use Lack of Transportation: No Lack of Food: Never True Current Housing: I Have Housing Concerned About Future Housing: No Difficulty Paying Gas/Electric Bills: No Difficulty Paying for Meds: No Currently Unemployed: No Education: High School Diploma/GED Difficulty w/ Childcare or Family Care: No Living arrangements: alone Gender identity (if verbalized by the patient): Female Spiritual care concerns: No Comments At time of signature, I have reviewed and agree with nursing past medical, surgical, social and family history unless otherwise noted. Please see nursing chart for further information. There is no relevant family history pertinent to the presenting complaint Exam Narrative: GENERAL: Well-appearing, in no acute distress. CHEST: Speaks in full sentences. No respiratory distress. HEART: Regular rate and rhythm. Normal and equal peripheral pulses. EXTREMITIES: Pain reported to palmar aspect of 1st metacarpal, small area of bruising approx 1cm diameter, tenderness at the si
== END 2023-05-10 11:25 | disposition home or self-care (01) ==
PROVIDERS: Emergency Provider Nurse Practitioner Family; PCP Family Medicine
DX: S63.602A Unspecified sprain of left thumb, initial encounter (principal); X50.9XXA Other and unspecified overexertion or strenuous movements or postures, initial encounter; E78.00 Pure hypercholesterolemia, unspecified; M85.80 Other specified disorders of bone density and structure, unspecified site; M19.041 Primary osteoarthritis, right hand; K21.00 Gastro-esophageal reflux disease with esophagitis, without bleeding; Z86.73 Personal history of transient ischemic attack (TIA), and cerebral infarction without residual deficits; H26.9 Unspecified cataract
CPT/HCPCS: 73130; 99213; G0463

== ENCOUNTER 2023-06-28 14:47 | Outpatient (CLI) | payer OTHER, SELFPAY ==
--- NOTE | ~2023-06-28 | MM_ITS ---
EXAMINATION: MM screening alexander BI w deisy HISTORY: Screening TECHNIQUE: Craniocaudal and mediolateral oblique 3-D tomosynthesis images were obtained and synthetic 2-D images were generated. CAD analysis was submitted and interpreted. COMPARISON: Comparison to multiple prior studies sequentially, with oldest reviewed study dated 02/22. BREAST PARENCHYMAL COMPOSITION: Breast composed of scattered areas of fibroglandular density FINDINGS: There is no evidence of suspicious mass, calcification, or architectural distortion to sugg est malignancy in either breast. There has been no suspicious interval change. IMPRESSION: 1. No mammographic evidence of malignancy. 2. Recommend routine screening mammography in one year. BI-RADS Category 1: Negative Reviewed, dictated and finalized at location A. DIRECTOR
== END 2023-06-28 14:48 | disposition home or self-care (01) ==
LOC: ANHIMG 14:49
PROVIDERS: PCP Nurse Practitioner Family; Visit Provider Family Medicine
DX: Z12.31 Encounter for screening mammogram for malignant neoplasm of breast (principal)
CPT/HCPCS: 77063; 77067

== ENCOUNTER 2025-03-07 10:36 | Outpatient (CLI) | payer OTHER, SELFPAY ==
--- NOTE | ~2025-03-07 | MM_ITS ---
EXAMINATION: MM screening alexander BI w deisy HISTORY: Screening TECHNIQUE: Craniocaudal and mediolateral oblique 3-D tomosynthesis images were obtained and synthetic 2-D images were generated. CAD analysis was submitted and interpreted. COMPARISON: Comparison to multiple prior studies sequentially, with oldest reviewed study dated , 04/08/2019 BREAST PARENCHYMAL COMPOSITION: There are scattered areas of fibroglandular density. FINDINGS: There is no evidence of suspicious mass, calcification, or architectural distortion to suggest malignancy in either breast. IMPRESSION: 1. No mammographic evidence of malignancy. 2. Recommend routine screening mammography in one year. BI-RADS Category 1: Negative Reviewed, dictated and finalized at location B.
== END 2025-03-07 10:37 | disposition home or self-care (01) ==
LOC: ANHFOHIMG 10:38
PROVIDERS: PCP Nurse Practitioner Family; Visit Provider Nurse Practitioner Family
DX: Z12.31 Encounter for screening mammogram for malignant neoplasm of breast (principal)
CPT/HCPCS: 77063; 77067